=== PATIENT | male | born 1970 | race Caucasian/White ===

== ENCOUNTER 2025-03-19 22:39 | Emergency (ER) | payer SELFPAY ==
[~2025-03-19] VITALS: Ht 170.2 cm; Wt 74.0 kg
[2025-03-19 22:52] VITALS: O2SAT 100
[2025-03-20 00:08] LABS: BASOPHILS % 0.4 % (0.0-2.0); EOSINOPHILS % 0.1 % (0.0-5.0); HEMATOCRIT. 32.7 % (42.0-52.0); HEMOGLOBIN. 11.3 g/dL (14.0-18.0); LYMPHOCYTES % 11.6 % (20.0-50.0); MEAN CORPUSCULAR HEMOGLOBIN 33.8 pg (28.0-32.0); MEAN CORPUSCULAR HGB CONC 34.6 g/dL (31.0-37.0); MEAN CORPUSCULAR VOLUME 97.7 fL (80.0-94.0); MEAN PLATELET VOLUME 8.6 fl (7.4-10.4); MONOCYTES % 6.9 % (2.0-8.0); PLATELET 147 x1000/uL (130-400); RED BLOOD CELL COUNT 3.35 mill/uL (4.7-6.1); RED CELL DISTRIBUTION WIDTH 13.2 % (11.6-14.6); WHITE BLOOD COUNT 11.4 x1000/uL (4.5-11.0)
[2025-03-20 00:27] LABS: CHLORIDE 103 mEq/L (98-107); POTASSIUM 3.9 mEq/L (3.5-5.1); SODIUM 136 mEq/L (136-145)
[2025-03-20 00:28] LABS: CALCIUM 8.9 mg/dL (8.7-10.4); CARBON DIOXIDE 28 mEq/L (21-32)
[2025-03-20 00:33] LABS: CREATININE 0.9 mg/dL (0.6-1.3); GLUCOSE 146 mg/dL (70-105); UREA NITROGEN BLOOD 9 mg/dL (9-23)
[2025-03-20] MEDS ORDERED: AMOX1TAB16 MT (01:20)
[2025-03-20 01:23] VITALS: BP 140/89; PULSE 95; RESP 16; TEMP 36.9; O2SAT 98
== END 2025-03-20 01:26 | disposition home or self-care (01) ==
LOC: EDBD 22:39 → ER 22:39
DX: R04.0 Epistaxis (principal); Z55.6 Problems related to health literacy; Z59.00 Homelessness unspecified; Z79.899 Other long term (current) drug therapy
CPT/HCPCS: 36415; 80048; 85025; 86850; 86900; 99283

== ENCOUNTER 2025-03-21 14:21 | Emergency (ER) | payer SELFPAY ==
[~2025-03-21] VITALS: Ht 157.5 cm; Wt 66.8 kg
[~2025-03-21 14:21] MED LIST: AMOX1TAB16 MT
[2025-03-21 14:34] VITALS: O2SAT 100
[2025-03-21] MEDS: OXYMETAZOLINE HCL NASAL SPRAY 15ML BOTHNSTRLS SCH (16:24)
[2025-03-21 16:32] VITALS: BP 121/81; PULSE 95; RESP 18; TEMP 36.7; O2SAT 100
== END 2025-03-21 16:33 | disposition home or self-care (01) ==
LOC: ER 14:21
DX: R04.0 Epistaxis (principal); Z01.818 Encounter for other preprocedural examination; Z90.49 Acquired absence of other specified parts of digestive tract
CPT/HCPCS: 99283; Z7610; 99284